=== PATIENT | male | born 1995 | race Caucasian/White ===

== ENCOUNTER 2018-07-03 07:14 | Emergency (ER) | payer BC ==
[2018-07-03 07:28] VITALS: BP 126/79
--- NOTE | 2018-07-03 07:52 | UC ---
FLU HPI - HPI Summary HPI Summary: CHIEF COMPLAINT and HPI: This is a normally healthy 23-year-old white male who reports a 3 day history of worsening sinus discomfort, frontal headache, fever, muscle aches and neck stiffness. His vital signs in the [facility] showed a temperature of 100.9. His blood pressure was slightly elevated at 126/ 79. His pulse ox was 95. He describes the pain primarily over the maxillary sinuses, nonradiating, 7/10. His neck discomfort is paracervical and is worse with movement of the neck and includes the trapezius muscle. VITAL SIGNS & SaO2 REVIEWED. 126/79 NURSES NOTE REVIEWED."Pt with sinus pressure, and post nasal drip, sore throat , and fever up to 101 last night. Pt has been taking 3 tabs of motrin every 4 hours for the fever." - History of Current Complaint Chief Complaint: UCRespiratory Stated Complaint: FEVER Time Seen by Provider: 07/03/18 07:29 Pain Intensity: 7 - Allergy/Home Medications Allergies/Adverse Reactions: Allergies Allergy/AdvReac Type Severity Reaction Status Date / Time No Known Allergies Allergy Verified 07/03/18 07:27 Home Medications: Home Medications Ibuprofen 600 mg PO Q4HR PRN 07/03/18 [History Confirmed 07/03/18] PMH/Surg Hx/FS Hx/Imm Hx - Additional Past Medical History Additional PMH: PAST MEDICAL HISTORY- sinusitis intermittent with headache. CHRONIC and RECURRENT HEALTH PROBLEM LIST REVIEWED. Information relevant to present complaint: Noncontributory VISIT HISTORY REVIEWED: Noncontributory. No antibiotic allergies MEDICATIONS & ALLERGIES REVIEWED. HYPERTENSION STATUS: On no medications FAMILY HISTORY: Positive for: hypertension, diabetes. 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 - Surgical History Surgical History: None - Social History Alcohol Use: Occasionally Substance Use Type: None Substance Use Comment - Amount & Last Used: unknown Smoking Status (MU): Never Smoked Tobacco - Immunization History Most Recent Influenza Vaccination: unknown Most Recent Pneumonia Vaccination: never Review of Systems All Other Systems Reviewed And Are Negative: Yes Constitutional: Positive: Fever Skin: Positive: Negative. Negative: Rash Eyes: Negative: Blurred Vision ENT: Positive: Sore Throat Respiratory: Positive: Negative. Negative: Shortness Of Breath Cardiovascular: Positive: Negative. Negative: Palpitations Gastrointestinal: Positive: Negative. Negative: Abdominal Pain Is Patient Immunocompromised?: No Physical Exam - Summary Physical Exam Summary: Appearance: The patient is well-appearing, is in no pain or distress, and is well-nourished. Eyes: Conjunctiva are clear. Pupils are equal and reactive to light and accommodation. Extra ocular muscle movement is intact. ENT: The hearing is grossly normal, the pharynx is normal, and the TMs are normal. There is no muffled or hoarse voice. No stridor. There is tenderness of the maxillary sinuses. There is no nasal discharge. The neck is supple. Neck: The neck is supple and there is no lymphadenopathy. Respiratory: The chest is non-tender to palpation and without crepitus. The lungs are clear, there are normal breath sounds, and there is no respiratory distress. No wheezes, rales or rhonchi. Cardiovascular: Heart sounds reveal a regular rate and rhythm. There are no clicks, rubs or murmurs. There are no carotid bruits or thrills. Circulation is grossly intact. Abdomen: The abdomen is soft and nontender. There is no organomegaly. Bowel sounds are present and within normal limits. No point tenderness at McBurneys point. No CVA tenderness. Musculoskeletal: Strength is intact. The patient moves all extremities. Neurological: The patient is alert. Motor and sensory are examination grossly intact. Speech is normal. Psychological: The patient displays age appropriate behavior, and is conversant. GCS=15. Skin: Negative for rashes. Triage Information Reviewed: Yes Vital Signs: Initial Vital Signs Temp 100.9 F 07/03/18 07:21 Pulse 103 07/03/18 07:21 Resp 18 07/03/18 07:21 BP 126/79 07/03/18 07:21 Pulse Ox 95 07/03/18 07:21 Vital Signs Reviewed: Yes Flu Course/Dx - Course Course Of Treatment: MEDICAL DECISION MAKING and PLAN: This is a normally healthy 23-year-old white male who reports a 3 day history of worsening sinus discomfort, frontal headache, fever, muscle aches and neck stiffness. His vital signs in the [facility] showed a temperature of 100.9. His blood pressure was slightly elevated at 126/79. His pulse ox was 95. He describes the pain primarily over the maxillary sinuses, nonradiating, 7/10. His neck discomfort is paracervical and is worse with movement of the neck and includes the trapezius muscle. Review of systems was otherwise unremarkable. There was no visual disturbance. There is no vomiting. The patient has a history of significant sinus discomfort. At one point it was recommended that he have a sinus procedure. His previous episodes of sinusitis included a frontal headache similar to the one that he has today. His physical examination showed an uncomfortable white male who is fully conversant. His neck is supple. There is no rash. Negative Brudzinski. Negative Kernig. Palpation of the maxillary sinuses shows tenderness. His examination is not consistent with meningitis at this time. My differential includes an upper respiratory infection including a sore throat that is viral versus a bacterial sinusitis. My diagnosis is sinusitis and I will start him on doxycycline, twice a day for 10 days. He will also use warm moist heat. Finally, he will follow up in 2 days if he has continued temperature and pain or any new symptoms. I explained this to the patient and he voiced understanding. MEDICATIONS REVIEWED. HYPERTENSION STATUS REVIEWED WITH PATIENT IF blood pressure is above 120/80. 126/79. Patient is urgent/emergent causing transient blood pressure elevation. - Differential Dx/Diagnosis Differential Diagnosis/HQI/PQRI: Influenza, Pneumonia, Other - sinusitis; meningitis Provider Diagnosis: Sinusitis Discharge - Sign-Out/Discharge Documenting (check all that apply): Patient Departure All imaging exams completed and their final reports reviewed: No Studies - Discharge Plan Condition: Stable Disposition: HOME Prescriptions: DOXYcycline CAP(*) [DOXYcycline 100MG CAP(*)] 100 mg PO BID #14 cap MDD 2 Patient Education Materials: Sinusitis (ED) Forms: *Gen. Provider Communication Referrals: No Primary Care Phys,NOPCP [Primary Care Provider] - Additional Instructions: WE DISCUSSED: PLEASE SEEK CARE AT THE EMERGENCY DEPARTMENT IF SYMPTOMS WORSEN OR IF NEW SYMPTOMS DEVELOP. FOLLOW UP WITH YOUR PRIMARY CARE PHYSICIAN IF CONDITION CONTINUES BEYOND 3 DAYS WITHOUT IMPROVEMENT. YOUR DIAGNOSIS IS: SINUSITIS YOUR PRESCRIPTION RECOMMENDATION IS: DOXYCYCLINE, TWICE A DAY, FOR 10 DAYS. OTHER INSTRUCTIONS: Follow up at [facility] in 2 days if you still have pain and temperature. You may need another antibiotic. Hypertension Discharge Instructions: Your blood pressure reading today was 126/79, indicating HYPERTENSION. Recheck over the next month. FOR PAIN AND/OR SLEEP: For pain: Ibuprofen (Motrin and other brand names) 400-600mg PLUS acetaminophen (Tylenol and other brand names) 500mg - 1000mg every 8 hours. COUGH, CONGESTION of CHEST, SINUSES OR EARS or SORE THROAT: USEFUL WAYS TO FEEL BETTER WITHOUT MEDICATIONS The most important goal is to liquefy all the phlegm and get it out of your head and chest. For sore throat, it is important to keep throat moist and protected. Any illness causing cough, congestion, sore throat or sinus discomfort can be helped by doing the following: FOR HEAD, SINUSES and CHEST: STAND UNDER SHOWER STREAM TO LOOSEN SECRETIONS. USE A VAPORIZOR. STAY AWAY FROM ANY SMOKE OR IRRITANTS. USE SALINE NASAL SPRAY TO KEEP FLOW OF MUCOUS FROM NOSTRILS AND SINUSES. CONSIDER USING NETI POT TO HELP WITH ALLERGIES AND CONGESTION IN THE NOSE. USE THIS THREE TIMES A WEEK. YOU CAN GET THIS AT [employer] IN [place] OR VARIOUS DRUGSTORES. FOR SORE THROAT: DRINK LOTS OF WARM FLUIDS WARM WATER GARGLES, WITH TSP OF SALT PER 8 OUNCES OF WATER, GARGLE FOR A FEW SECONDS AND SPIT OUT; GARGLE AND SPIT OUT, EVERY THREE HOURS. AND/OR: WARM WATER OR TEA, HONEY AND LEMON; 2-3 CUPS A DAY. KEEP THROAT MOIST and PROTECTED WITH LOZENGES. USE VAPORIZOR. DONT LET THROAT DRY OUT. AFRIN NASAL SPRAY: 2-3 SPRAYS PER NOSTRIL, TWICE A DAY FOR TWO DAYS ONLY. FLONASE: (or other steroid nasal sprays) can help if your running nose is caused by an allergy. It can help relieve congestion. It is used once a day in each nostril. Check the dose with your pharmacist. FOLLOW UP for RESPIRATORY, SINUS OR THROAT ILLNESS: RE-CHECK IN 1O DAYS, NEEDED, IF YOU ARE NOT IMPROVING. RETURN HERE OR SEE YOUR PHYSICIAN. RE-CHECK SOONER IF INCREASED PAIN OR TEMPERATURE WITH COUGH, SINUS PAIN OR SORE THROAT. - Billing Disposition and Condition Condition: STABLE Disposition: Home
[2018-07-03 08:00] LABS: Influenza A Molecular NEGATIVE (Negative); Influenza B Molecular NEGATIVE (Negative)
== END 2018-07-03 08:25 | disposition home or self-care (01) ==
LOC: UCEAST 07:14
DX: J32.9 Chronic sinusitis, unspecified (principal); R50.9 Fever, unspecified; J02.9 Acute pharyngitis, unspecified; R03.0 Elevated blood-pressure reading, without diagnosis of hypertension; Z82.49 Family history of ischemic heart disease and other diseases of the circulatory system; Z83.3 Family history of diabetes mellitus
CPT/HCPCS: 87651; 99212; G0463

== ENCOUNTER 2018-07-04 11:14 | Emergency (ER) | payer BC ==
[2018-07-04 11:24] VITALS: BP 135/94
[2018-07-04] MEDS ORDERED: Ondansetron ODT TAB* 4 MG PO ONE (11:33)
[2018-07-04] MEDS ORDERED: NS 0.9% 1000 ML** 1,000 ML IV ONE (11:55)
--- NOTE | 2018-07-04 12:30 | UC ---
Nausea/Vomiting/Diarrhea HPI - HPI Summary HPI Summary: Patient presents to urgent care reporting feeling dehydrated from nausea and vomiting related to doxycycline he was prescribed yesterday for sinus infection. Patient states he has a history of POTS syndrome and easily gets dehydrated and symptomatic. Patient states he vomited through the night probably 6 or 7 times. Patient did make urine this morning but states it was dark. no sob, cp. No fonseca, vision changes. no lightheaded. Patient without any abdominal pain. Patient without any fevers or chills today but did have one yesterday. Patient did not take it doctor this morning. Patient states he spoked with his primary care provider who recommended he come get some IV fluids. Patient has had be hospitalized previously for his POTS related dehydration. Medications reviewed - History of Current Complaint Chief Complaint: UCGeneralIllness Stated Complaint: VOMITING Time Seen by Provider: 07/04/18 11:33 Hx Obtained From: Patient, Medical Records Pain Intensity: 6 - Allergies/Home Medications Allergies/Adverse Reactions: Allergies Allergy/AdvReac Type Severity Reaction Status Date / Time doxycycline Allergy Vomiting Verified 07/04/18 12:51 PMH/Surg Hx/FS Hx/Imm Hx Previously Healthy: Yes - POTS syndrome - Surgical History Surgical History: None - Family History Known Family History: Positive: Non-Contributory - Social History Occupation: Student Lives: Dormitory/Roommates Alcohol Use: Occasionally Substance Use Type: None Substance Use Comment - Amount & Last Used: unknown Smoking Status (MU): Never Smoked Tobacco - Immunization History Most Recent Influenza Vaccination: unknown Most Recent Pneumonia Vaccination: never Review of Systems All Other Systems Reviewed And Are Negative: Yes Skin: Positive: Negative Gastrointestinal: Positive: Vomiting, Nausea Is Patient Immunocompromised?: No Physical Exam - Summary Physical Exam Summary: Vital Signs Reviewed: Yes A+Ox3, no distress Eyes: Conjunctiva Clear, JUSTINE. EOM intact and full ENT: Hearing grossly normal TM x 2 clear, turbinates boggy + PNS + TTP max sinuses, mmpasty, uvula midline, no exudate, no erythema Neck: Positive: Supple Respiratory: Positive: No respiratory distress, No accessory muscle use + CTA throughout no w/r Cardiovascular: RRR nl s1, s2 no m/r CBT <2 sec abd soft + BS nt/nd no guarding, no distension Musculoskeletal Exam: HENDERSON x 4 without difficulty Strength Intact, ROM Intact Neurological: Positive: Alert, + sensation throughout Psychological: Positive: Normal Response To Family Skin: Positive: no rash, no ecchymosis Triage Information Reviewed: Yes Vital Signs: Initial Vital Signs Temp 98.7 F 07/04/18 11:20 Pulse 85 07/04/18 11:20 Resp 18 07/04/18 11:20 BP 135/94 07/04/18 11:20 Pulse Ox 99 07/04/18 11:20 Re-Evaluation - Re-Evaluation First Eval Change: Improved - PT denies nausea - will try some water offered popsicle - pt declined Second Eval Comment: Pt tolerating crackers and water. IVF complete. feels okay to d/c home. Will Rx amox d/c doxy. updated allergy in [place]. Rx zofran. Pt requested a note as has final exam today Naus/Vom/Diarrhea Course/Dx - Course Course Of Treatment: Pt presents to reporting n/v s/p taking Doxycycline prescribed here yesterday for sinusitis Pt with a h/o POTS and is sensitive to mild dehydration. Pt PCP recommend come to UC for IVF Pt given zofran with improvement of nausea After discussion with pt - will give 1 L IVF - will reassess - if not improved will send to ED for further treatment Pt comfortable and in agreement with plan - Differential Dx/Diagnosis Provider Diagnosis: Sinusitis, Medication reaction, Mild dehydration Condition At Discharge: Stable Discharge - Sign-Out/Discharge Documenting (check all that apply): Patient Departure All imaging exams completed and their final reports reviewed: No Studies - Discharge Plan Condition: Stable Disposition: HOME Prescriptions: Amoxicillin PO (*) [Amoxicillin 500 MG CAP*] 500 mg PO Q12H #20 cap Ondansetron ODT TAB* [Zofran 4 MG Odt TAB*] 4 mg PO Q4H PRN #10 tab.odt PRN Reason: Nausea Patient Education Materials: Dehydration (ED), Antibiotic Medication Allergy ( ED) Forms: *Gen. Provider Communication Referrals: [facility] [Provider Group] No Primary Care Phys,NOPCP [Primary Care Provider] - Additional Instructions: -For the first 6 hours, eat and drink clears (water, rosemarie joaquín, soup broth, jello, popsicles, Gatorade). If you tolerate this okay, add bland foods such as dry toast, scrambled eggs, crackers. Wait until you are feeling better for 24 hours before eating spicy food, acidic food, tomato based food, fried food. - Take medication as prescribed for nausea -Stop taking Doxycycline. you have been prescribe Amoxicillin - start this medication for your sinus infection - Contact your doctor, go to [facility] or to the emergency department with questions or concerns - Billing Disposition and Condition Condition: STABLE Disposition: Home
== END 2018-07-04 13:08 | disposition home or self-care (01) ==
LOC: UCEAST 11:14
DX: J32.9 Chronic sinusitis, unspecified (principal); R11.2 Nausea with vomiting, unspecified; T36.4X5A Adverse effect of tetracyclines, initial encounter; Y92.9 Unspecified place or not applicable; E86.0 Dehydration; I49.8 Other specified cardiac arrhythmias
CPT/HCPCS: 96360; 99212; A9270-GY; G0463

== ENCOUNTER 2019-02-08 19:39 | Emergency (ER) | payer BC ==
[2019-02-08 20:13] LABS: ABS Eosinophils 0.1 10^3/ul (0-0.6); ABS Lymphocytes 1.5 10^3/ul (1.0-4.8); ABS Monocytes 0.4 10^3/ul (0-0.8); ABS Neutrophils 4.4 10^3/ul (1.5-7.7); Eosinophil % 1.1 %; Hematocrit 47 % (42-52); Hemoglobin 16.1 g/dL (14.0-18.0); Lymphocyte % 23.5 %; Mean Corpuscular HGB Conc 35 g/dL (31-36); Mean Corpuscular Hemoglobin 30 pg (27-31); Mean Corpuscular Volume 86 fL (80-94); Mean Platelet Volume 7.6 fL (7.4-10.4); Platelet Count 281 10^3/uL (150-450); Red Blood Count 5.44 10^6 /uL (4.18-5.48); Red Cell Distribution Width 14 % (10-15); White Blood Count 6.4 10^3/uL (3.5-10.8)
[2019-02-08 20:29] LABS: Albumin 4.9 g/dL (3.2-5.2); Albumin/Globulin Ratio 1.6 (1-3); BUN/Creatinine Ratio 10.2 (8-20); Calcium 9.6 mg/dL (8.6-10.3); EGFR African American 92.6 (>60); EGFR Non-African American 76.5 (>60); Total Bilirubin 0.8 mg/dL (0.2-1.0); Total Protein 7.9 g/dL (6.4-8.9)
--- NOTE | 2019-02-08 20:35 | ED ---
Back Pain - HPI Summary HPI Summary: Patient complains of left flank pain and hematuria status post fall 2 days ago. Patient was walking several dogs when they pulled him over he fell on ice on a flat grass surface. Patient noticed blood in his urine today, has been having left flank pain since fall. Patient sent by urgent care to ED for further evaluation. Denies head injury, ROMERO, N/V, vision change, neurological deficits, incontinence of bowel, abdominal pain, pain with urination, penile discharge, testicular pain change in BM, any other pain, injury or symptoms. Medical history is none. No anti-coag. - History of Current Complaint Chief Complaint: EDFlankPain Stated Complaint: BLOOD IN URINE PER PT Time Seen by Provider: 02/08/19 19:51 Hx Obtained From: Patient Onset/Duration: Sudden Onset, Lasting Days Onset/Duration: Started Hours Ago Timing: Intermittent Severity Initially: Moderate Severity Currently: Moderate Pain Intensity: 4 Pain Scale Used: 0-10 Numeric Character: Throbbing Aggravating Symptom(s): Movement Alleviating Symptom(s): Rest Associated Signs And Symptoms: Positive: Flank Pain - Allergies/Home Medications Allergies/Adverse Reactions: Allergies Allergy/AdvReac Type Severity Reaction Status Date / Time doxycycline Allergy Vomiting Verified 07/04/18 12:51 Home Medications: Home Medications NK [No Home Medications Reported] 02/08/19 [History Confirmed 02/08/19] PMH/Surg Hx/FS Hx/Imm Hx Endocrine/Hematology History: Denies: Hx Anticoagulant Therapy Cardiovascular History: Denies: Hx Pacemaker/ICD History: Denies: Hx Dialysis Sensory History: Denies: Hx Contacts or Glasses - unknown, Hx Hearing Aid Opthamlomology History: Denies: Hx Contacts or Glasses - unknown EENT History: Denies: Hx Deafness Neurological History: Denies: Hx Dementia - Immunization History Date of Tetanus Vaccine: Fall 2018 Infectious Disease History: No Infectious Disease History: Denies: Traveled Outside the [place] in Last 30 Days - Family History Known Family History: Positive: Non-Contributory - Social History Alcohol Use: Occasionally Hx Substance Use: No Substance Use Type: Reports: None Substance Use Comment - Amount & Last Used: unknown Hx Tobacco Use: No Smoking Status (MU): Never Smoked Tobacco Review of Systems Constitutional: Negative Eyes: Negative ENT: Negative Cardiovascular: Negative Respiratory: Negative Gastrointestinal: Negative Positive: hematuria Musculoskeletal: Other Skin: Negative Neurological: Negative Psychological: Normal All Other Systems Reviewed And Are Negative: Yes Physical Exam - Summary Physical Exam Summary: CVA tenderness left side. No ecchymosis, erythema, deformity, swelling noted to the back. PMS intact distally bilateral lower extremities. Triage Information Reviewed: Yes Vital Signs On Initial Exam: Initial Vitals Temp Pulse Resp BP Pulse Ox 97.9 F 82 16 137/96 99 02/08/19 19:44 02/08/19 19:44 02/08/19 19:44 02/08/19 19:44 02/08/19 19:44 Vital Signs Reviewed: Yes Appearance: Positive: Well-Appearing Skin: Positive: Warm Head/Face: Positive: Normal Head/Face Inspection Eyes: Positive: Normal Dental: Negative: Dental Fracture @, Bleeding Neck: Positive: Supple Respiratory/Lung Sounds: Positive: Clear to Auscultation Cardiovascular: Positive: Normal Abdomen Description: Positive: Nontender Musculoskeletal: Positive: Normal Neurological: Positive: Normal Psychiatric: Positive: Normal AVPU Assessment: Alert - [place] Coma Scale Best Eye Response: 4 - Spontaneous Best Motor Response: 6 - Obeys Commands Best Verbal Response: 5 - Oriented Coma Scale Total: 15 Procedures - Sedation Patient Received Moderate/Deep Sedation with Procedure: No Diagnostics - Vital Signs Vital Signs Temp Pulse Resp BP Pulse Ox 02/08/19 19:44 97.9 F 82 16 137/96 99 - Laboratory Lab Results: Lab Results 02/08/19 02/08/19 Range/Units 20:03 20:03 WBC 6.4 (3.5-10.8) 10^3/uL RBC 5.44 (4.18-5.48) 10^6 /uL Hgb 16.1 (14.0-18.0) g/dL Hct 47 (42-52) % MCV 86 (80-94) fL MCH 30 (27-31) pg MCHC 35 (31-36) g/dL RDW 14 (10-15) % Plt Count 281 (150-450) 10^3/uL MPV 7.6 (7.4-10.4) fL Neut % (Auto) 68.4 % Lymph % (Auto) 23.5 % Ness % (Auto) 6.2 % Eos % (Auto) 1.1 % Baso % (Auto) 0.8 % Absolute Neuts (auto) 4.4 (1.5-7.7) 10^3/ul Absolute Lymphs (auto) 1.5 (1.0-4.8) 10^3/ul Absolute Monos (auto) 0.4 (0-0.8) 10^3/ul Absolute Eos (auto) 0.1 (0-0.6) 10^3/ul Absolute Basos (auto) 0.0 (0-0.2) 10^3/ul Absolute Nucleated RBC 0.0 10^3/ul Nucleated RBC % 0.0 Sodium 139 (135-145) mmol/L Potassium Pending Chloride 103 (101-111) mmol/L Carbon Dioxide 29 (22-32) mmol/L Anion Gap Pending BUN 12 (6-24) mg/dL Creatinine 1.18 H (0.67-1.17) mg/dL Est GFR ( Amer) 92.6 (>60) Est GFR (Non-Af Amer) 76.5 (>60) BUN/Creatinine Ratio 10.2 (8-20) Glucose 99 (70-100) mg/dL Calcium 9.6 (8.6-10.3) mg/dL Total Bilirubin 0.80 (0.2-1.0) mg/dL AST Pending ALT 12 (7-52) U/L Alkaline Phosphatase 47 (34-104) U/L Total Protein 7.9 (6.4-8.9) g/dL Albumin 4.9 (3.2-5.2) g/dL Globulin 3.0 (2-4) g/dL Albumin/Globulin Ratio 1.6 (1-3) Result Diagrams: 02/08/19 20:03 02/08/19 20:03 Lab Statement: Any lab studies that have been ordered have been reviewed, and results considered in the medical decision making process. Back Pain Course/Dx - Course Course Of Treatment: Patient complains of left flank pain and hematuria status post fall 2 days ago. Patient was walking several dogs when they pulled him over he fell on ice on a flat grass surface. Patient noticed blood in his urine today, has been having left flank pain since fall. Patient sent by urgent care to ED for further evaluation. Denies head injury, ROMERO, N/V, vision change, neurological deficits, incontinence of bowel, abdominal pain, pain with urination, penile discharge, testicular pain change in BM, any other pain, injury or symptoms. Medical history is none. No anti-coag. - Diagnoses Provider Diagnoses: Hematuria, Fall Discharge ED - Sign-Out/Discharge Documenting (check all that apply): Patient Departure - Discharge Plan Condition: Stable Disposition: HOME Patient Education Materials: Hematuria (ED) Referrals: [facility] [Primary Care Provider] - Additional Instructions: Continue to monitor blood in urine. Return to the ED for any new or worsening symptoms. - Billing Disposition and Condition Condition: STABLE Disposition: Home - Attestation Statements Provider Attestation: I was available for consult. This patient was seen by the [facility]. The patient was not presented to, seen by, or examined by me. Srikanth Almazan MD
[2019-02-08 20:36] LABS: INR 1.08 (0.82-1.09)
[2019-02-08 21:08] LABS: Potassium 4.2 mmol/L (3.5-5.0)
[2019-02-08] MEDS ORDERED: Iohexol 300* (CONTRAST) 10 ML SDV IV ONE (21:25)
[2019-02-08 22:49] LABS: Urine Appearance Cloudy; Urine Bilirubin Negative (Negative); Urine Blood 3+ (Negative); Urine Color Yellow; Urine Glucose Negative (Negative); Urine Ketones Negative (Negative); Urine Nitrite Negative (Negative); Urine Protein Negative (Negative); Urine Specific Gravity > 1.060 (1.010-1.030); Urine Urobilinogen Negative (Negative)
[2019-02-08 22:54] LABS: Urine Bacteria Absent (Absent); Urine Red Blood Cell 3+(>10/hpf) (Absent); Urine White Blood Cell Absent (Absent)
[2019-02-08 23:38] VITALS: BP 119/87
== END 2019-02-08 23:40 | disposition home or self-care (01) ==
LOC: ED 19:39
DX: R10.84 Generalized abdominal pain (principal); R31.9 Hematuria, unspecified; Z91.81 History of falling
CPT/HCPCS: 36415; 74177; 80053; 81003; 81015; 85025; 85610; 99283; Q9967